=== PATIENT | female | born 1950 | race Caucasian/White ===

== ENCOUNTER → 2019-08-05 10:34 | Outpatient (BNVA) | payer MEDICARE, MEDICAID, SELFPAY | PROVIDERS: Family Provider Family Medicine; PCP Family Medicine; Visit Provider Emergency Medicine | DX: N39.0 Urinary tract infection, site not specified (principal); N81.4 Uterovaginal prolapse, unspecified | CPT/HCPCS: 81000 ==

== ENCOUNTER → 2019-08-16 15:13 | Outpatient (BNVA) | payer MEDICARE, MEDICAID, SELFPAY | PROVIDERS: Family Provider Family Medicine; PCP Family Medicine; Visit Provider Obstetrics & Gynecology | DX: N81.4 Uterovaginal prolapse, unspecified (principal) | CPT/HCPCS: 81000 ==

== ENCOUNTER 2019-08-25 11:13 | Observation (INO) | payer MEDICARE, MEDICAID, SELFPAY ==
[2019-08-24 08:40] VITALS: BMI 27.3
[2019-08-25] VITALS (18 sets, daily range): BP systolic 98–126; BP diastolic 53–74; PULSE 81–101; RESP 14–18; TEMP 36.4–36.7; O2SAT 92–99
[2019-08-25 06:18] LABS: Add Urine Microscopic? NO
--- NOTE | 2019-08-25 06:24 | ANES.PREANE2 ---
Pre-Anesthetic Assessment Pre-Anesthetic Assessment: Height/Weight: Height 1.7 m Weight 79.379 kg Temp Pulse Resp BP Pulse Ox 98.0 F 82 18 126/64 99 08/25/19 06:07 08/25/19 06:07 08/25/19 06:07 08/25/19 06:07 08/25/19 06:07 Preop Diagnosis: Uterine prolapse stage III Proposed Procedure: Operation Date: 08/25/19 07:00 Proposed Procedures p Total Vaginal Hysterectomy 5826 85281 [id number] N81.4 N39.3 A63.0(Not Applicable) - Reed Dyson MD s Salpingo-Oophorectomy (Vaginal)(Bilateral) - Reed Dyson MD s Anterior Repair(Not Applicable) - Reed Dyson MD s Sling SIS with sacrospinous ligament(Not Applicable) - Reed Dyson MD s Laser Ablation Gential Warts(Not Applicable) - Reed Dyson MD Familial anesthetic complications: PONV 1X Was Beta Cricket taken within 24 hours: N/A Last intake: Intake Last Liquid Date 08/24/19 Last Liquid Time 22:30 Last Solid Date 08/24/19 Last Solid Time 17:30 Social: Social History: Tobacco and No alcohol Exam: Pre-Anes Outpt Exam: alert, oriented x 3, clear to auscultation bilaterally and regular rate & rhythm Airway: Cervical ROM: WNL MP: 3 Dentition: False Pulmonary: Pulmonary: None reported CV/HEM: CV/HEM: HTN : : None reported Hepatic: Hepatic: None reported GI: GI: None reported Metabolic: Metabolic: None reported Musc/skel: Musc/skel: None reported Neuropsych: Neuropsych: TIA (2009) Anesthetic Plan: ASA status: 2 Anesthesia: General Risk of > 500 ml blood loss (7ml/kg in children): No PFSH Anesthesia PFSH: Medical History Uterine prolapse Family History Grandmother Diabetes maternal and paternal Brother Stroke Denies family history of Hyperlipidemia Hypertension Social History (Updated 08/16/19 @ 15:05 by Brittney Rdz RN) Smoking and tobacco status: current every day smoker cigarettes Packs smoked per day: 0.5 Years cigarettes smoked: 20 Alcohol intake: never Data Anesthesia Cardiac Studies: No Data to Display
[2019-08-25 06:35] LABS: Bilirubin Urine Neg (NEGATIVE); Blood Urine Neg (Negative); Glucose Urine UA Norm (Normal); Ketones Urine Negative (Negative); Leukocyte Esterase Urine Negative (Negative); Nitrate Urine Negative (Negative); Protein Urine Neg (Negative); Specific Gravity, Urine 1.015 (1.005-1.030); Urine Appearance Clear (CLEAR); Urine Color Yellow (Yellow); Urobilinogen Urine Norm (Negative); pH Urine 6 (5-7)
[2019-08-25 06:44] LABS: Basophils # 0.1 10^3/uL (0.0-0.1); Basophils % 1.1 %; Eosinophils # 0.4 10^3/uL (0.0-0.8); Eosinophils % 3.6 %; Hematocrit 45.9 % (37.0-47.0); Hemoglobin 14.7 g/dL (11.5-15.3); Lymphocytes # 2.9 10^3/uL (0.8-4.8); Mean Corpuscular Hemoglobin 29.4 pg (28.0-34.0); Mean Corpuscular Volume 91.8 fL (81-99); Mean Platelet Volume 9.6 fL (7.4-10.4); Monocytes # 0.8 10^3/uL (0.2-0.9); Monocytes % 8.4 %; Neutrophils # 5.4 10^3/uL (1.8-7.7); Neutrophils % 56.5 %; Nucleated Red Blood Cells % 0 %; Platelet Count 229 10^3/cmm (130-400); Red Cell Distribution Width 13.7 % (12.1-15.1); White Blood Count 9.6 10^3/uL (4.0-10.0)
[2019-08-25] MEDS: sodium chloride 0.9% 1,000 ML 30 ML IV (06:59)
--- NOTE | 2019-08-25 07:01 | W.PM.OPSUD ---
Surgery/Procedure H&P Update DATE OF PROCEDURE: August 25, 2019 DATE H&P PERFORMED: 08/16/19 H&P UPDATE INFORMATION: I have reviewed H&P completed within last 30 days, I have examined patient prior to procedure and No changes to prior documentation PREOP DIAGNOSIS: Uterine prolapse stage III PLANNED PROCEDURE: Operation Date: 08/25/19 07:00 Proposed Procedures p Total Vaginal Hysterectomy 5826 24416 08326 [id number] 30559 N81.4 N39.3 A63.0(Not Applicable) - Reed Dyson MD s Salpingo-Oophorectomy (Vaginal)(Bilateral) - Reed Dyson MD s Anterior Repair(Not Applicable) - Reed Dyson MD s Sling SIS with sacrospinous ligament(Not Applicable) - Reed Dyson MD s Laser Ablation Gential Warts(Not Applicable) - Reed Dyson MD
[2019-08-25 07:09] LABS: INR 0.94 (0.8-1.2)
[2019-08-25 07:19] LABS: Alanine Aminotransferase 20 U/L (0-33); Albumin Level 4.4 g/dL (3.5-5.2); Alkaline Phosphatase 67 IU/L (35-105); Anion Gap 13.4 (5-19); Aspartate Amino Transferase 19 U/L (0-32); Blood Urea Nitrogen 16 mg/dL (8-23); Calcium 9.9 mg/dL (8.5-10.5); Carbon Dioxide 26 mmol/L (22-29); Chloride 103 mmol/L (98-107); Globulin 2.4 g/dL (1.3-4.6); Glomerular Filtration Rate 71.5 mL/min (90-130); Glucose 109 mg/dL (65-115); Osmolality Calculated 283 mOsm/kg (285-295); Potassium 4.4 mmol/L (3.5-5.1); Sodium 138 mmol/L (136-145); Total Bilirubin 0.4 mg/dL (0.15-1.2); Total Protein 6.8 g/dL (6.6-8.7)
[2019-08-25] MEDS: estrogens Conjugated Cream 30 gm 1 APPLIC VAGINAL (10:40)
[2019-08-25] MEDS: silver sulfadiazine cream 1% 50 gm 1 APPLIC TOPICAL (10:41)
--- NOTE | 2019-08-25 10:54 | P.OP_ITS ---
Operative Report Date of procedure: August 25, 2019 Pre-op Diagnosis: Uterine prolapse stage III, Genital Warts Post-op diagnosis: same Procedure Done: Total vaginal hysterectomy with right salpingo-oophorectomy, Anterior colporrhaphy augmented with allograft, posterior colporrhaphy, mid urethral sling, and bilateral sacrospinous ligament suspension Specimens removed/disposition: Uterus and right ovary Genital warts Surgeon: Reed Dyson Anesthesia: General Estimated blood loss (mL): 150 IV fluids (mL): 1,900 Urine output (mL): 200 Complications: None Condition: stable Disposition: PACU Brief History: 69-year-old female with uterine prolapse stage 3-4, and multiple vulvar perineal genital warts Procedure: After informed consent and risks, benefits, indications and alternatives reviewed with the patient was taken to the operating room. The patient was placed in dorsal lithotomy position prepped, and draped in the usual sterile fashion. The pre-procedure timeout verifying the correct patient, procedure, site and side, could not requirements was performed and acknowledge by the OR team. A Smiley catheter was placed. A Bookwalter vaginal retractor was placed into the vagina in usual manner visualize the cervix. Cervix was grasped with a single tooth tenaculum and circumferentially infiltrated with 1% Xylocaine with epinephrine. Then cervix was circumferentially incised with bovie and the bladder was dissected off the pubovesical cervical fascia anteriorly with a sponge stick and Metzenbaum scissors. The anterior peritoneal reflection was identified and the anterior cul-de-sac was entered sharply with Metzenbaum scissors. The same procedure was performed posteriorly and a posterior colpotomy was made through the posterior cul-de-sac space without difficulty and the posterior blade of the Bookwalter vaginal retractor was advanced posteriorly into the cul-de-sac. At this time, the left and right uterosacral ligaments were isolated and ligated with 0 Vicryl. The Enseal device was placed over the uterosacral ligaments on either side and was then used in a serial fashion up through the cardinal ligaments bilaterally cross-clamped, cut, and sealed with the Enseal device. Finally, the uterine arteries were cross-clamped, cut, sealed and ligated with the Enseal device. Hemostasis was assured. The broad ligaments were then serially clamped, sealed and cut with the Enseal device on both sides. Excellent hemostasis was visualized. Both cornua were clamped, sealed and cut with the Enseal device. Then the pedicles were then suture ligated with excellent hemostasis. The uterus was excised and submitted for pathologic evaluation. No other ab normalities were noted in the pelvic cavity. The peritoneum was then closed in a pursestring fashion with 0 Vicryl suture. The vaginal cuff angles were closed with [id number] #0 Vicryl suture on both sides and transfixed with the ipsilateral cardinal and uterosacral ligaments. The remainder of the vaginal cuff was closed with #0 Vicryl in a running locked fashion. A vertical midline incision was made beneath the midurethra, nearly 1.5 cm length. Careful submucosal dissection was performed bilaterally up to the interior portion of the inferior pubic ramus. The insertion of adductor longus tendon on the patient?s pubic ramus was identified as reference land brittaney. Palpated the notch along the internal edge of ischiopubic ramus where the adductor longus tendon and the inferior pubic ramus meet. The needle of the SIS inserted aiming at the location of this notch. One of the integrated self- fixating tips place onto the needle by sliding it over the end of the needle. The needle/sling assembly was inserted toward the location of identified reference notch making sure that the flat of the handle is perpendicular to the desired path. The needle was tracked along the posterior surface of the ischiopubic ramus until the midline brittaney on the mesh is approximately at the midline position under the urethra. The needle was removed and the same was repeated on the contralateral side until the appropriate sling tension under the urethra was achieved ensuring that the mesh lays flat. The needle was removed and vaginal incision was closed in a running interlocking fashion with 2-0 V icryl. The vaginal mucosa was then injected in the midline with normal saline. The vaginal mucosa was scored in the midline with the scalpel approximately 1 cm medial to the urethral meatus to 1 cm distal to the vaginal cuff. This vaginal mucosa was then undermined and then incised in the midline with the Metzenbaum scissors. The lateral aspects of the vaginal mucosa were then grasped with the A llis clamps and the vaginal mucosa was then dissected off the underlying fascia with the Metzenbaum scissors. Again, there was noted to be quite a bit of oozing at the incision, which was controlled with cautery. After adequate dissection was performed, bilaterally. An ACell MatriStem Pelvic Floor Matrix is modified at time of application to fit spacea,3 x 3 cm piece . MatriStem PFM placed in front of cystocele ready to be implanted with the Basement Membrane facing the vagina mucosa. Suture is placed at distal end of graft and placed towards vaginal cuff. Final suture is placed on proximal portion of the graft to complete the placement overlying the bladder. Then Interrupted vertical mattress sutures of 0 Vicryl were used to elevate the cystocele superiorly. The excessive vaginal mucosa was then trimmed with the Metzenbaum scissors and the vaginal mucosa was then reapproximated in the running interlocking fashion with 2-0 Vicryl. The posterior vaginal mucosa is opened in the routine fashion as described previously in Posterior Repair. A finger is inserted through the incision in the posterior vaginal mucosa, dissecting out the rectovaginal space (RVS). The right rectal pillar (RRP) is identified. The rectal pillar can be bluntly perforated either with the finger and with the tip of a long Adeola clamp. A Gladys- Aj retractor is used for exposing the rectovaginal space in order to enter the pararectal space with retraction of the cardinal ligament, vagina, and rectum. Displacing the rectum to the left and the cardinal ligament and ureter anteriorly. A sponge dissector is used to bluntly dissect the sacrospinous ligament removing areolar tissue. The ischial spine was palpated directly, and a area approximately 2 cm medial to the spine was selected for insertion of the Anchorsure transvaginal sacrospinous fixation system. One end of the suture of Anchoresure system inserted through the sacrospinous ligament is placed through the muscular layer of the vagina. In a similar manner, the second suture is placed. The opposite end of the suture in the sacrospinous ligament is left free and held on a small hemostat. Then traction on this suture will draw the vaginal vault directly to the ligament, where a square knot affixes it to the sacrospinous ligament. After the stefano stich is tied the second safety stich is tied. Then the colporrhaphy/vaginal repair is carried out in routine fashion. At this time, instruments were removed from the vagina at hemostasis assured. Then the Smiley catheter was removed and cystoscope was inserted. The bladder was filled with sterile water. Complete evaluation of the bladder mucosa was performed noting no lacerations, dimpling, tears, bleeding of the mucosa or muscular layers. Both ureteral orifices were identified. Prompt excretion of urine from both ureteral orifices was noted. Cystoscope was withdrawn. Smiley catheter was then placed yielding clear blue/paty urine. Then we proceeded to fulgurate vulvar and perianel genital warts in usual fashion 27 lesions were excised and send to pathology. A vaginal packing with Premarin cream was placed and the patient was taken out of dorsal lithotomy position and awakened from the general anesthesia. The patient tolerated the procedure well and was taken to the PACU recovery room in a stable condition. Sponge, lap, needle and instruments counts were correct x3.
[2019-08-25] MEDS: HYDROcodone-acetaminophen 5-325 mg Tablet PO (12:09)
[2019-08-25] MEDS: ketorolac 30 mg/mL INJ IVP ×2 (12:10→18:05)
[2019-08-25] MEDS: dextrose 5%-lactated ringers 1,000 ML 125 ML IV ×2 (12:14→20:29)
[2019-08-25] MEDS: ceFAZolin 1,000 MG in sodium chloride 0.9% (plus) 50 ML 100 MG IV (15:07)
[2019-08-25] MEDS: docusate sodium 100 mg Capsule PO (18:05)
--- NOTE | 2019-08-25 19:46 | PC.NURSE ---
Patient has bowel sounds in all four quadants without any flatus. Patient was informed that her diet can be advanced as soon as she is able to pass flatus.
[2019-08-26] MEDS: ceFAZolin 1,000 MG in sodium chloride 0.9% (plus) 50 ML 100 MG IV (00:46)
[2019-08-26 01:59] VITALS: BP 106/68; PULSE 89; RESP 16; TEMP 36.7; O2SAT 93
[2019-08-26] MEDS: ketorolac 30 mg/mL INJ IVP ×2 (02:02→08:25)
[2019-08-26 04:00] VITALS: BP 104/64; PULSE 85; RESP 20; TEMP 36.8; O2SAT 92
[2019-08-26] MEDS: dextrose 5%-lactated ringers 1,000 ML 125 ML IV ×2 (04:52→12:04)
[2019-08-26 05:13] LABS: Hematocrit 36.6 % (37.0-47.0); Hemoglobin 11.7 g/dL (11.5-15.3); Mean Corpuscular Hemoglobin 29.5 pg (28.0-34.0); Mean Corpuscular Volume 92.4 fL (81-99); Mean Platelet Volume 9.7 fL (7.4-10.4); Platelet Count 195 10^3/cmm (130-400); Red Blood Count 3.96 10^6/uL (4.1-5.3); Red Cell Distribution Width 13.8 % (12.1-15.1); White Blood Count 13.6 10^3/uL (4.0-10.0)
[2019-08-26 07:47] VITALS: BP 115/62; PULSE 78; RESP 15; TEMP 36.9; O2SAT 94
[2019-08-26] MEDS: omega-3 fatty acids 1,000 mg Capsule 1000 MG PO (08:25)
[2019-08-26] MEDS: lisinopril 10 mg Tablet PO (08:25)
[2019-08-26] MEDS: docusate sodium 100 mg Capsule PO (08:25)
[2019-08-26] MEDS: aspirin 325 mg Tablet PO (08:25)
[2019-08-26 11:36] VITALS: BP 122/67; PULSE 81; RESP 15; TEMP 36.9; O2SAT 92
--- NOTE | 2019-08-26 11:42 | PC.CHAP ---
Pastoral Care Encounter/Spiritual Assessment Type of Contact [] Declined nursing unit coordinator visit [] Patient/Family/Request visit [] Outpatient visit [] Follow-up visit [] Physician referral [] Code/Alert [x] Routine visit [] Staff referral [] Actively dying [] Patient sleeping [] Family support [] [] Out of room [] Palliative care [] [] Receiving care in room [] Pre-surgical visit [] Trauma [] Long length of stay [] ICU visit [] Other: Relational/Emotional Strength [x] Patient feels connected with others/family/visitors/staff [] Distress [] Loneliness/isolation [] Abandonment Spirituality of Patient [x] Person of Ju [x] Attends Judaism of their Ju [xx] Believes in Prayer [x] Reads Bible or Worship materials [] There are Spiritual issues to be addressed Film Process Operator Interventions [x] Prayer [x] Active listening [x] Non-anxious presence [x] Spiritual/emotional support [] Crisis/trauma care [x] Spiritual counseling [] Bereavement support [] Provided bereavement packet [] Provided Bible/devotional materials [] Provided toy/stuffed animal, coloring book to patient or family member [] Provided Communion [] Anointing/[place] [] Salvation [x] Completed spiritual assessment [] Other: Impact on Illness or Injury [] Angry [] Fearful [] Anxious [] Often cries [] Exhaustion [] Unable to work [] Unable to attend amish [] Unable to walk/stand [] Unable to read [] Unable to drive [] Unable to eat/drink [] Unable to sleep [] Unable to be with family [] Patient intubated [x] Other: Summary 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 Time spent with patient 10 minutes
--- NOTE | 2019-08-26 14:06 | PC.NURSE ---
Catheter was removed. 10cc of fluid in balloon. Patient tolerated well. Vaginal packing was removed as well. Post residual volume after catheter was removed and was found to be 174mL. Patient stated she can usually has to go to urinate after having a bowel movement, so patient attempted to void once more and residual was checked once more and found 154mL. Dr. Dyson called and patient to be sent home with a leg bag and an appointment to return to clinic on Friday to remove berry.
--- NOTE | 2019-08-26 14:07 | P.DS_ITS ---
Discharge Providers NANOTECHNOLOGY TECHNICIAN Date of Admission: 08/25/19 11:13 Date of Discharge: 08/26/19 Attending Provider at Admission: Reed Dyson MD Attending Provider at Discharge: Reed Dyson MD Primary Care Provider: Ericka Robertson MD Diagnoses at Discharge Discharge Diagnosis (1) Genital warts: Status: Acute (2) ANALILIA (stress urinary incontinence, female): Status: Acute (3) Uterine prolapse: Status: Acute Reason for Visit Reason for Visit: Reason For Visit: Uterine prolapse stage 4 Hospital Course Hospital Course: 69-year-old female admitted for planned total vaginal hysterectomy with bilateral salpingo-oophorectomy, anterior and posterior colporrhaphy mid urethral sling, bilateral sacrospinous ligament suspension and fulguration/excision of genital warts. The procedures were performed without complication. Overnight observation was uneventful. She is afebrile hemodynamically stable, pain well under control. Tolerating diet well. Ambulating without difficulty. Initial PVR 170 mL, second PVR 154 mL. The patient was counseled that she would have to go home with Smiley bag and return to the clinic on Friday rest the bladder longer. Physical Exam Narrative: EXAM NARRATIVE: GA: Alert and oriented ?3. HEENT: WNL. Heart: Regular rate and rhythm. Lungs: Clear to auscultation bilaterally. Abdomen: Bowel sounds present, nontender. AUTOMATIC FABRIC CUTTER: No bleeding. Extremities: No edema, no cyanosis, no calves pain. Urinary Catheter Management^: Smiley: Cath Placed During This Visit: yes Urinary Catheter Date of Insertion: 08/25/19 Urinary Catheter Time of Insertion: 08:00 Discharge Data Data Completed and Pending: Pending at discharge Category Date Time Status Urine Culture Rou samira Lab 08/25/19 06:12 Results Pathology: Surgic al [PTH] Routine Pth 08/26/19 09:55 Received Labs from last 24 hours 08/26/19 04:42 WBC 13.6 H RBC 3.96 L Hgb 11.7 Hct 36.6 L MCV 92.4 MCH 29.5 MCHC 32.0 RDW 13.8 Plt Count 195 MPV 9.7 Laboratory Tests 08/25/19 06:37 WBC 9.6 Hgb 14.7 Hct 45.9 Plt Count 229 Vitals: Last Vital Signs Temp 98.5 F 08/26/19 11:36 Pulse 81 08/26/19 11:36 Resp 15 08/26/19 11:36 BP 122/67 08/26/19 11:36 Pulse Ox 92 08/26/19 11:36 Discharge Plan Discharge Patient Disposition: Home, Self-Care Condition: Stable Prescriptions: New Triple Antibiotic Plus 3.5-500-10,000 [id number] ointment 1 applic TOPICAL BID Qty: 15 RF: 0 acetaminophen [Mapap Extra Strength] 500 mg tablet 500 mg PO Q4H PRN (Reason: fever or pain) Qty: 60 RF: 0 Continued lisinopril 10 mg tablet 10 mg PO DAILY Qty: 30 RF: 0 aspirin 325 mg Tablet 325 mg PO DAILY RF: 0 PreserVision AREDS 14,320-226-200 [id number] Capsule 1 cap PO BID RF: 0 Fish Oil 1,000 mg (120 mg-180 mg) Capsule 1 cap PO DAILY RF: 0 Discharge Orders: Discharge Order (Routine); Ordered 08/26/19 Ordered By: Reed Dyson Referrals: Reed Dyson MD [Physician] - Discharge Diet: Regular Discharge Activity: Increase activity as tolerated and Limit activity as instructed Activity Restrictions/Additional Instructions: Pelvic rest for 6 weeks (no sex, no tampons, no vaginal douches). Return to the emergency room if any fever, increased bleeding or pain. Discharge Attestations NANOTECHNOLOGY TECHNICIAN Time Spent in Discharge Care*: greater than 30 min Specific Discharge Activities: Specific discharge activities: educating patient Time Spent in Smoking Cessation: Time spent discussing smoking cessation with patient: 3 to 10 minutes Coding Level of Care Code Acute Dietitian Consultant for [facility] Fwd Diagnoses Genital warts A63.0 ANALILIA (stress urinary incontinence, female) N39.3 Uterine prolapse N81.4
[2019-08-26 14:38] VITALS: BP 122/67; PULSE 81; RESP 15; TEMP 36.9; O2SAT 92
[2019-08-26 15:52] VITALS: BP 142/72; PULSE 89; RESP 17; TEMP 36.9; O2SAT 94
== END 2019-08-26 16:00 | disposition home or self-care (01) ==
LOC: MEDSURG 11:13
PROVIDERS: Admitting Provider Obstetrics & Gynecology; PCP Family Medicine; Visit Provider Obstetrics & Gynecology
PROC: (CPT 57240; principal; 2019-08-25 07:00)
PROC: (CPT 58720; 2019-08-25 07:00)
PROC: 0JQC0ZZ Repair Pelvic Region Subcutaneous Tissue and Fascia, Open Approach (ICD-10-PCS; CPT 57240; 2019-08-25 07:00)
PROC: (CPT 57288; 2019-08-25 07:00)
PROC: (CPT 57240; 2019-08-25 07:00)
PROC: (CPT 57250; 2019-08-25 07:00)
PROC: 0TJB8ZZ Inspection of Bladder, Via Natural or Artificial Opening Endoscopic (ICD-10-PCS; CPT 52000; 2019-08-25 07:00)
DX: N81.3 Complete uterovaginal prolapse (principal); A63.0 Anogenital (venereal) warts; N39.3 Stress incontinence (female) (male); I10 Essential (primary) hypertension; Z86.73 Personal history of transient ischemic attack (TIA), and cerebral infarction without residual deficits; F17.210 Nicotine dependence, cigarettes, uncomplicated
CPT/HCPCS: 57240; 57288; 58262; 12345; 36415; 51702; 80053; 81003; 85025; 85027; 85610; 86850; 86900; 87086; 88304; 88307; 96361; 96365; 96366; 96375; C1713; C1762; G0378; J0690; J0694; J1885; J2001; J2704; J3010; J3490; J7030

== ENCOUNTER → 2019-10-06 13:02 | Outpatient (BNVA) | payer MEDICARE, MEDICAID, SELFPAY | PROVIDERS: PCP Family Medicine; Visit Provider Family Medicine | DX: N30.00 Acute cystitis without hematuria (principal); B37.3 Candidiasis of vulva and vagina | CPT/HCPCS: 80053; 81000 ==

== ENCOUNTER → 2019-10-18 16:48 | Outpatient (BNVA) | payer MEDICARE, MEDICAID, SELFPAY | PROVIDERS: PCP Family Medicine; Visit Provider Obstetrics & Gynecology | DX: N39.0 Urinary tract infection, site not specified (principal) | CPT/HCPCS: 80053; 87077; 87086; 87186 ==

== ENCOUNTER → 2019-11-06 09:38 | Outpatient (BNVA) | payer MEDICARE, MEDICAID, SELFPAY | PROVIDERS: PCP Family Medicine; Visit Provider Emergency Medicine | DX: N30.01 Acute cystitis with hematuria (principal); R39.9 Unspecified symptoms and signs involving the genitourinary system | CPT/HCPCS: 81000 ==

== ENCOUNTER → 2019-11-16 14:11 | Outpatient (BNVA) | payer MEDICARE, MEDICAID, SELFPAY | PROVIDERS: PCP Family Medicine; Visit Provider Obstetrics & Gynecology | DX: Z48.816 Encounter for surgical aftercare following surgery on the genitourinary system (principal); A63.0 Anogenital (venereal) warts; R35.0 Frequency of micturition | CPT/HCPCS: 81000 ==

== ENCOUNTER → 2019-11-22 12:24 | Outpatient (BNVA) | payer MEDICARE, MEDICAID, SELFPAY | PROVIDERS: PCP Family Medicine; Visit Provider Obstetrics & Gynecology | DX: R30.0 Dysuria (principal) | CPT/HCPCS: 80053; 81000 ==

== ENCOUNTER → 2019-12-17 14:53 | Outpatient (BNVA) | payer MEDICARE, MEDICAID, SELFPAY | PROVIDERS: PCP Family Medicine; Visit Provider Obstetrics & Gynecology | DX: R35.0 Frequency of micturition (principal) | CPT/HCPCS: 81000 ==

== ENCOUNTER → 2020-01-25 10:20 | Outpatient (BNVA) | payer MEDICARE, MEDICAID, SELFPAY | PROVIDERS: PCP Family Medicine; Visit Provider Nurse Practitioner Family | DX: J98.11 Atelectasis (principal); R05 Cough | CPT/HCPCS: 71046 ==

== ENCOUNTER → 2020-06-15 09:24 | Outpatient (BNVA) | payer MEDICARE, MEDICAID, SELFPAY | PROVIDERS: PCP Family Medicine; Visit Provider Obstetrics & Gynecology | DX: Z01.812 Encounter for preprocedural laboratory examination (principal); N99.3 Prolapse of vaginal vault after hysterectomy | CPT/HCPCS: 87635 ==

== ENCOUNTER 2020-06-21 09:10 | Day surgery (SDC) | payer MEDICARE, SELFPAY ==
[2020-06-19 11:52] LABS: Add Urine Microscopic? NO
[2020-06-19 12:02] LABS: Bilirubin Urine Neg (Negative); Blood Urine Neg (Negative); Glucose Urine UA Norm (Normal); Ketones Urine Negative (Negative); Leukocyte Esterase Urine Negative (Negative); Nitrate Urine Negative (Negative); Protein Urine Neg (Negative); Specific Gravity, Urine 1.015 (1.005-1.030); Urine Appearance Clear (CLEAR); Urine Color Yellow (Yellow); Urobilinogen Urine Norm (Negative); pH Urine 5 (5-7)
[2020-06-19 12:03] LABS: Basophils # 0.1 10^3/uL (0.0-0.1); Basophils % 0.7 %; Eosinophils # 0.1 10^3/uL (0.0-0.8); Eosinophils % 1.8 %; Hematocrit 40.9 % (37.0-47.0); Hemoglobin 13.5 g/dL (11.5-15.3); Lymphocytes # 1.9 10^3/uL (0.8-4.8); Lymphocytes % 25.9 %; Mean Corpuscular Hemoglobin 30.5 pg (28.0-34.0); Mean Corpuscular Volume 92.3 fL (81-99); Mean Platelet Volume 9.1 fL (7.4-10.4); Monocytes # 0.4 10^3/uL (0.2-0.9); Monocytes % 5.4 %; Neutrophils # 4.77 10^3/uL (1.8-7.7); Neutrophils % 65.9 %; Nucleated Red Blood Cells % 0 %; Platelet Count 228 10^3/cmm (130-400); Red Blood Count 4.43 10^6/uL (4.1-5.3); White Blood Count 7.2 10^3/uL (4.0-10.0)
--- NOTE | 2020-06-19 12:13 | ECG_ITS ---
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 Measurements Intervals [place] Rate: 77 P: 59 VT: 146 QRS: 51 QRSD: 89 T: 53 QT: 372 QTc: 423 Interpretive Statements SINUS RHYTHM No previous ECG available for comparison Electronically Signed On 06-20-2020 0:08:01 CDT by Lucien Booker M.D. [email or web address]
--- NOTE | 2020-06-19 12:22 | P.ANESASSM_ITS ---
Pre-Anesthetic Assessment Pre-Anesthetic Assessment: Height/Weight: Height 1.7 m Weight 71.668 kg Preop Diagnosis: Vaginal apex prolapse Proposed Procedure: Operation Date: 06/21/20 12:50 Proposed Procedures p Sacrospinous Ligament Suspension 88398 N99.3(Not Applicable) - Reed Dyson MD Was Beta Cricket taken within 24 hours: N/A Was Clonidine taken within 24 hours: N/A Social: Social History: Tobacco and No alcohol Exam: Pre-Anes Outpt Exam: alert, oriented x 3, clear to auscultation bilaterally and regular rate & rhythm Airway: Submandibular: WNL Cervical ROM: WNL MP: 2 Dentition: False Pulmonary: Pulmonary: COPD CV/HEM: CV/HEM: HTN Anesthetic Plan: ASA status: 3 Anesthesia: General Risk of > 500 ml blood loss (7ml/kg in children): No PFSH Anesthesia PFSH: Medical History Aftercare following surgery of the genitourinary system Hyperlipemia Hypertension Uterine prolapse Surgical History No pertinent past surgical history S/P bladder repair 80's S/P carpal tunnel release bilateral S/P hysterectomy 08/25/2019- [facility] with right salpingo-oophorectomy, anterior colporrhaphy augmented with allograft, posterior colporrhaphy, mid urethral sling and bilateral sacrospinous ligament suspension performed by Dr. Dyson at [facility] [place] S/P rotator cuff repair right Family History (Updated 06/19/20 @ 08:53 by Brittney Rdz, RN) Grandmother Diabetes maternal and paternal Brother Stroke Denies family history of Colon cancer Ovarian cancer Clotting disorder Heart disease Hyperlipidemia Breast cancer Anesthesia complication Bleeding disorder Hypertension Uterine cancer Thyroid condition Social History (Updated 06/19/20 @ 08:54 by Brittney Rdz, RN) Smoking and tobacco status: current every day smoker cigarettes Packs smoked per day: 0.5 Years cigarettes smoked: 20 Alcohol intake: never Substance/Drug Use: never Data Anesthesia CBC & Chem 7: 06/19/20 11:55 06/19/20 11:55 Other Labs: Laboratory Results - last 48 hr 06/19/20 06/19/20 11:47 11:55 WBC 7.2 RBC 4.43 Hgb 13.5 Hct 40.9 MCV 92.3 MCH 30.5 MCHC 33.0 RDW 14.0 Plt Count 228 MPV 9.1 Neut % (Auto) 65.9 Lymph % (Auto) 25.9 [place] % (Auto) 5.4 Eos % (Auto) 1.8 Baso % (Auto) 0.7 Neut # (Auto) 4.77 Lymph # (Auto) 1.9 [place] # (Auto) 0.4 Eos # (Auto) 0.1 Baso # (Auto) 0.1 Nucleated RBC % (auto) 0 Nucleated RBCs # 0.0 Urine Color Yellow Urine Appearance Clear Urine pH 5 Ur Specific Hermin[place] 1.015 Urine Protein Neg Urine Glucose (UA) Norm Urine Ketones Negative Urine Blood Neg Urine Nitrate Negative Urine Bilirubin Neg Urine Urobilinogen Norm Ur Leukocyte Esterase Negative Cardiac Studies: No Data to Display
[2020-06-19 12:25] LABS: Alanine Aminotransferase 17 U/L (0-33); Albumin Level 4.1 g/dL (3.5-5.2); Alkaline Phosphatase 77 IU/L (35-105); Anion Gap 12.8 (5-19); Aspartate Amino Transferase 18 U/L (0-32); Blood Urea Nitrogen 11 mg/dL (8-23); Calcium 9.1 mg/dL (8.5-10.5); Carbon Dioxide 25 mmol/L (22-29); Chloride 97 mmol/L (98-107); Globulin 2.8 g/dL (1.3-4.6); Glomerular Filtration Rate 62.3 mL/min (90-130); Glucose 95 mg/dL (65-115); Osmolality Calculated 271 mOsm/kg (285-295); Potassium 3.8 mmol/L (3.5-5.1); Sodium 131 mmol/L (136-145); Total Bilirubin 0.2 mg/dL (0.15-1.2); Total Protein 6.9 g/dL (6.6-8.7)
--- NOTE | 2020-06-21 09:32 | W.PM.OPSUD ---
Surgery/Procedure H&P Update DATE OF PROCEDURE: June 21, 2020 DATE H&P PERFORMED: 08/16/19 H&P UPDATE INFORMATION: I have reviewed H&P completed within last 30 days, I have examined patient prior to procedure and No changes to prior documentation PREOP DIAGNOSIS: Uterine prolapse stage III, Genital Warts PLANNED PROCEDURE: Operation Date: 06/21/20 10:40 Proposed Procedures p sacrospinous ligament fixation(Not Applicable) - Reed Dyson MD
[2020-06-21] MEDS: sodium chloride 0.9% 1,000 ML 30 ML IV (10:10)
--- NOTE | 2020-06-21 10:23 | P.ANESUD_ITS ---
Pre-Anesthetic Update Pre-Anesthetic Assessment: Date of Surgery/Procedure: 06/21/20 Preop Nidhi gnosis: Uterine prolapse stage III, Genital Warts Proposed Procedure: Operation Date: 06/21/20 10:40 Proposed Procedures p sacrospinous ligament fixation(Not Applicable) - Reed Dyson MD Any changes to Pre-Anesthetic Assessment?: No Last Intake: Intake Last Liquid Date 06/20/20 Last Liquid Time 23:30 Last Solid Date 06/20/20 Last Solid Time 20:00 Labs Last 48hrs: Laboratory Results - last 48 hr 06/19/20 06/19/20 06/19/20 11:47 11:55 11:55 WBC 7.2 RBC 4.43 Hgb 13.5 Hct 40.9 MCV 92.3 MCH 30.5 MCHC 33.0 RDW 14.0 Plt Count 228 MPV 9.1 Neut % (Auto) 65.9 Lymph % (Auto) 25.9 [place] % (Auto) 5.4 Eos % (Auto) 1.8 Baso % (Auto) 0.7 Neut # (Auto) 4.77 Lymph # (Auto) 1.9 [place] # (Auto) 0.4 Eos # (Auto) 0.1 Baso # (Auto) 0.1 Nucleated RBC % (a uto) 0 Nucleated RBCs # 0.0 Sodium 131 L Potassium 3.8 Chloride 97 L Carbon Dioxide 25 Anion Gap 12.8 BUN 11 Creatinine 0.9 GFR Calculation 62.3 L Glucose 95 Calculated Osmolal ity 271 L Calcium 9.1 Total Bilirubin 0.2 AST 18 ALT 17 Alkaline Phosphata se 77 Total Protein 6.9 Albumin 4.1 Globulin 2.8 Urine Color Yellow Urine Appearance Clear Urine pH 5 Ur Specific Gravit y 1.015 Urine Protein Neg Urine Glucose (UA) Norm Urine Ketones Negative Urine Blood Neg Urine Nitrate Negative Urine Bilirubin Neg Urine Urobilinogen Norm Ur Leukocyte Mary ase Negative Blood Type Rho(D) Type Antibody Screen 06/19/20 11:59 WBC RBC Hgb Hct MCV MCH MCHC RDW Plt Count MPV Neut % (Auto) Lymph % (Auto) [place] % (Auto) Eos % (Auto) Baso % (Auto) Neut # (Auto) Lymph # (Auto) [place] # (Auto) Eos # (Auto) Baso # (Auto) Nucleated RBC % (a uto) Nucleated RBCs # Sodium Potassium Chloride Carbon Dioxide Anion Gap BUN Creatinine GFR Calculation Glucose Calculated Osmolal ity Calcium Total Bilirubin AST ALT Alkaline Phosphata se Total Protein Albumin Globulin Urine Color Urine Appearance Urine pH Ur Specific Gravit y Urine Protein Urine Glucose (UA) Urine Ketones Urine Blood Urine Nitrate Urine Bilirubin Urine Urobilinogen Ur Leukocyte Mary ase Blood Type O Negative Rho(D) Type Negative / 0 Antibody Screen Negative Vitals: Pulse Rhythm 06/21/20 09:55 Pulse Strength 3+ Normal 06/21/20 09:55 Oxygen Delivery Me thod 06/21/20 09:55 Exam: Pre-Anes Outpt Exam: alert, oriented x 3, clear to auscultation bilaterally and regular rate & rhythm Cardiac Studies: No Data to Display
[2020-06-21] MEDS: sodium chloride 0.9% 500 ML 999 ML IV (10:25)
[2020-06-21 13:46] VITALS: BP 131/65; PULSE 103; RESP 16; TEMP 36.2; O2SAT 97
[2020-06-21 13:50] VITALS: BP 116/59; PULSE 84; RESP 14; O2SAT 98
--- NOTE | 2020-06-21 13:50 | PM.OP ---
Operative Report Date of procedure: June 21, 2020 Pre-op Diagnosis: Vaginal Arnold prolapse stage 2 Post-op diagnosis: same Procedure Done: Sacrospinal ligament fixation Specimens removed/disposition: None Surgeon: Reed Dyson MD Anesthesia: General Estimated blood loss (mL): 25 Urine output (mL): 300 Findings: Vaginal apex prolapse stage II Condition: stable Disposition: PACU Brief History: 70-year-old female post hysterectomy anterior colporrhaphy and previous ligament fixation, developed apex prolapse stage II after being sick with coughing. Procedure: The patient is placed in the dorsal lithotomy position and is prepped and draped in the usual manner. If no hysterectomy: circumscribing the vaginal mucosa at the junction of the cervix and vagina in the routine manner for starting a vaginal hysterectomy. The vaginal hysterectomy is completed at this point according to the technique shown in the section Uterus. The posterior vaginal mucosa is opened in the routine fashion as described previously in Posterior Repair. A finger is inserted through the incision in the posterior vaginal mucosa, dissecting out the rectovaginal space (RVS). The right rectal pillar (RRP) is identified. The rectal pillar can be bluntly perforated either with the finger or with the tip of a long Adeola clamp. A right angle retractor was used for exposing the rectovaginal space in order to enter the pararectal space with retraction of the cardinal ligament, vagina, and rectum. Displacing the rectum to the left and the cardinal ligament and ureter anteriorly. A sponge dissector is used to bluntly dissect the sacrospinous ligament removing areolar tissue. The ischial spine was palpated directly, and a area approximately 2 cm medial to the spine was selected for insertion of the Anchorsure transvaginal sacrospinous fixation system. One end of the suture of Anchoresure system inserted through the sacrospinous ligament is placed through the muscular layer of the vagina. In a similar manner, the second suture is placed. The opposite end of the suture in the sacrospinous ligament is left free and held on a small hemostat. Then traction on this suture will draw the vaginal vault directly to the ligament, where a square knot affixes it to the sacrospinous ligament. After the stefano stich is tied the second safety stich is tied. The vaginal mucosa was closed in a running locked fashion with Vicryl 2-O. Patient tolerated procedure well. Excellent hemostasis was obtained. Sponge, lap, needle, and instrument counts were correct times three. The patient was taken to the recovery room, awake and in stable condition.
[2020-06-21 13:55] VITALS: BP 114/54; PULSE 88; RESP 16; TEMP 36.2; O2SAT 99
[2020-06-21 13:57] VITALS: BP 116/59; PULSE 90; RESP 16; TEMP 36.2; O2SAT 96
[2020-06-21 14:26] VITALS: BP 114/64; PULSE 78; RESP 16; O2SAT 96
--- NOTE | 2020-06-21 16:04 | ANE.PACU2 ---
Inpatient post-anesthesia follow up: Airway intact: Yes Vital signs: Temperature 97.2 F Pulse Rate 78 Respiratory Rate 16 Blood Pressure 114/64 Pulse Oximetry 96 Oxygen Delivery Me thod Room Air Oxygen Flow Rate 6 Fraction of Inspir ed Oxygen Hydration adequate: Yes Nausea and vomiting: No Pain level: 1 Mental status: Baseline
== END 2020-06-21 14:45 | disposition home or self-care (01) ==
PROVIDERS: PCP Family Medicine; Visit Provider Obstetrics & Gynecology
PROC: 0JQC0ZZ Repair Pelvic Region Subcutaneous Tissue and Fascia, Open Approach (ICD-10-PCS; CPT 57240; principal; 2020-06-21 10:40)
DX: N99.3 Prolapse of vaginal vault after hysterectomy (principal); J44.9 Chronic obstructive pulmonary disease, unspecified; I10 Essential (primary) hypertension; E78.5 Hyperlipidemia, unspecified; F17.210 Nicotine dependence, cigarettes, uncomplicated
CPT/HCPCS: 57282; 36415; 80053; 81003; 85025; 86850; 86900; 93005; 96365; J0690; J2250; J2370; J2405; J2704; J3010; J7030

== ENCOUNTER → 2020-08-04 13:48 | Outpatient (BNVA) | payer MEDICARE, SELFPAY | PROVIDERS: PCP Family Medicine; Visit Provider Obstetrics & Gynecology | DX: R35.0 Frequency of micturition (principal); N39.0 Urinary tract infection, site not specified; N39.46 Mixed incontinence; Z48.816 Encounter for surgical aftercare following surgery on the genitourinary system | CPT/HCPCS: 81000 ==

== ENCOUNTER → 2020-09-12 10:52 | Outpatient (BNVA) | payer MEDICARE, SELFPAY | PROVIDERS: PCP Family Medicine; Visit Provider Emergency Medicine | DX: J30.2 Other seasonal allergic rhinitis (principal); N39.0 Urinary tract infection, site not specified | CPT/HCPCS: 81000 ==

== ENCOUNTER → 2021-02-14 10:43 | Outpatient (BNVA) | payer MEDICARE, SELFPAY | PROVIDERS: PCP Family Medicine; Visit Provider Emergency Medicine | DX: R05.9 Cough, unspecified (principal); I70.90 Unspecified atherosclerosis | CPT/HCPCS: 71046 ==

== ENCOUNTER → 2021-08-22 09:27 | Outpatient (BNVA) | payer MEDICARE, MEDICAID, SELFPAY | PROVIDERS: PCP Family Medicine; Visit Provider Family Medicine | DX: I10 Essential (primary) hypertension (principal); G89.28 Other chronic postprocedural pain; N32.81 Overactive bladder; J44.1 Chronic obstructive pulmonary disease with (acute) exacerbation; E78.00 Pure hypercholesterolemia, unspecified; J30.2 Other seasonal allergic rhinitis | CPT/HCPCS: 80053; 80061; 85025 ==

== ENCOUNTER → 2021-09-07 10:19 | Outpatient (BNVA) | payer MEDICARE, MEDICAID, SELFPAY | PROVIDERS: PCP Family Medicine; Visit Provider Emergency Medicine | DX: R05.9 Cough, unspecified (principal); F17.200 Nicotine dependence, unspecified, uncomplicated | CPT/HCPCS: 71046 ==

== ENCOUNTER → 2022-06-24 10:18 | Outpatient (BNVA) | payer OTHER, SELFPAY | PROVIDERS: PCP Family Medicine; Visit Provider Family Medicine | DX: J44.9 Chronic obstructive pulmonary disease, unspecified (principal); I10 Essential (primary) hypertension; G89.28 Other chronic postprocedural pain; J44.1 Chronic obstructive pulmonary disease with (acute) exacerbation; E78.00 Pure hypercholesterolemia, unspecified; J41.0 Simple chronic bronchitis; Z72.0 Tobacco use; N32.81 Overactive bladder | CPT/HCPCS: 80053; 80061 ==

== ENCOUNTER → 2022-07-02 10:40 | Outpatient (BNVA) | payer MEDICARE, SELFPAY | PROVIDERS: PCP Family Medicine; Visit Provider Nurse Practitioner Family | DX: N30.00 Acute cystitis without hematuria (principal); J22 Unspecified acute lower respiratory infection; B96.89 Other specified bacterial agents as the cause of diseases classified elsewhere | CPT/HCPCS: 81000 ==

== ENCOUNTER → 2022-07-15 09:29 | Outpatient (BNVA) | payer MEDICARE, SELFPAY | PROVIDERS: PCP Family Medicine; Visit Provider Emergency Medicine | DX: R39.9 Unspecified symptoms and signs involving the genitourinary system (principal) | CPT/HCPCS: 81000; 87077; 87086; 87184 ==

== ENCOUNTER → 2022-08-27 09:39 | Outpatient (BNVA) | payer MEDICARE, SELFPAY | PROVIDERS: PCP Family Medicine; Visit Provider Family Medicine | DX: A09 Infectious gastroenteritis and colitis, unspecified (principal) | CPT/HCPCS: 87045; 87427; 87449; 87493; 87506 ==

== ENCOUNTER → 2022-10-07 09:55 | Outpatient (BNVA) | payer MEDICARE, SELFPAY | PROVIDERS: PCP Family Medicine; Visit Provider Family Medicine | DX: Z00.00 Encounter for general adult medical examination without abnormal findings (principal); Z71.89 Other specified counseling; F17.200 Nicotine dependence, unspecified, uncomplicated; Z53.20 Procedure and treatment not carried out because of patient's decision for unspecified reasons; I10 Essential (primary) hypertension; E87.1 Hypo-osmolality and hyponatremia; J41.0 Simple chronic bronchitis; K52.9 Noninfective gastroenteritis and colitis, unspecified | CPT/HCPCS: 80048 ==

== ENCOUNTER → 2022-10-22 10:06 | Outpatient (BNVA) | payer MEDICARE, SELFPAY | PROVIDERS: PCP Family Medicine; Visit Provider Family Medicine | DX: E87.1 Hypo-osmolality and hyponatremia (principal) | CPT/HCPCS: 80048 ==

== ENCOUNTER → 2022-12-25 10:13 | Outpatient (BNVA) | payer MEDICARE, SELFPAY | PROVIDERS: PCP Family Medicine; Visit Provider Nurse Practitioner Family | DX: N39.0 Urinary tract infection, site not specified (principal) | CPT/HCPCS: 81000; 87077; 87086; 87184 ==

== ENCOUNTER 2023-01-08 09:50 | Outpatient (CLI) | payer MEDICARE, OTHER, SELFPAY ==
--- NOTE | 2023-01-08 10:14 | MM_ITS ---
WS: [id number] BILATERAL SCREENING DIGITAL TOMOSYNTHESIS MAMMOGRAM WITH CAD HISTORY: Z00.00 - Encounter for general adult medical examination ... COMPARISON: None available. Bilateral CC and MLO views with tomosynthesis and synthetic mammography submitted. Computer aided det ection analyzed. Breast composition: There are scattered areas of fibroglandular density. No suspicious masses, microc alcifications or architectural distortion. Benign calcifications LEFT breast. IMPRESSION: MM/[place] [id number] BI-RADS: 2-Benign FOLLOW UP: 1 Year Follow-up
== END 2023-01-08 09:51 | disposition home or self-care (01) ==
PROVIDERS: PCP Family Medicine; Visit Provider Family Medicine
DX: Z12.31 Encounter for screening mammogram for malignant neoplasm of breast (principal)
CPT/HCPCS: 77063; 77067

== ENCOUNTER → 2023-01-13 13:54 | Outpatient (BNVA) | payer MEDICARE, SELFPAY | PROVIDERS: PCP Family Medicine; Visit Provider Nurse Practitioner Family | DX: N39.0 Urinary tract infection, site not specified (principal); R30.0 Dysuria | CPT/HCPCS: 81000; 87077; 87086; 87184 ==

== ENCOUNTER → 2023-07-23 09:52 | Outpatient (BNVA) | payer MEDICARE, SELFPAY | PROVIDERS: PCP Family Medicine; Visit Provider Nurse Practitioner Family | DX: N39.0 Urinary tract infection, site not specified | CPT/HCPCS: 81000; 87077; 87086; 87184 ==

== ENCOUNTER → 2023-07-30 09:32 | Outpatient (BNVA) | payer MEDICARE, SELFPAY | PROVIDERS: PCP Family Medicine; Visit Provider Nurse Practitioner Family | DX: N39.0 Urinary tract infection, site not specified (principal); N39.46 Mixed incontinence | CPT/HCPCS: 81000; 87086; 87184 ==

== ENCOUNTER → 2023-10-15 11:24 | Outpatient (BNVA) | payer MEDICARE, SELFPAY | PROVIDERS: PCP Family Medicine; Visit Provider Family Medicine | DX: Z13.1 Encounter for screening for diabetes mellitus (principal); E78.00 Pure hypercholesterolemia, unspecified | CPT/HCPCS: 80053; 80061 ==

== ENCOUNTER → 2024-01-05 09:19 | Outpatient (BNVA) | payer MEDICARE, SELFPAY | PROVIDERS: PCP Family Medicine; Visit Provider Nurse Practitioner Family | DX: R30.0 Dysuria (principal) | CPT/HCPCS: 81000 ==

== ENCOUNTER 2024-01-28 13:25 | Outpatient (CLI) | payer MEDICARE, SELFPAY ==
--- NOTE | 2024-01-28 14:00 | MM_ITS ---
WS: [id number] BILATERAL 3D TOMOSYNTHESIS DIGITAL SCREENING MAMMOGRAPHY WITH CAD CLINICAL INFORMATION: Z12.39 - Encounter for other screening for malignant neop... HISTORY: Screening mammogram. No current complaints. COMPARISON: 01/08/2023 TECHNIQUE: Bilateral CC and MLO views. FINDINGS: Scattered fibroglandular densities bilaterally. No suspicious focal mass, asymmetry, calcifications, or architectural distortion. No evidence of malignancy. A few incidental punctate calcifications LEFT breast MM/MM scr tomosynthesis [id number] IMPRESSION: DENSITY: There are scattered areas of fibroglandular density. BI-RADS: 2 - Benign. FOLLOW UP: 1 Year Follow-up Recommend return to annual screening mammography.
--- NOTE | 2024-01-28 14:30 | XR_ITS ---
WS: [id number] SCREENING DEXA SCAN [facility] CLINICAL INFORMATION: Z78.0 - Asymptomatic menopausal state COMPARISON: None. FINDINGS: The L1-L4 bone mineral density measures 1.453 g/cm2. This corresponds to a T score score of 2.3 and Z score of 3.9. Left femoral neck bone mineral density measures 0.918 g/cm2. This corresponds to a T score of -0.7 an d Z score of 0.8. Right femoral neck bone mineral density measures 0.872 g/cm2. This corresponds to a T score -1.1of an d Z score of 0.4. Mean femoral neck bone mineral density measures 0.895 g/cm2. This corresponds to a T score of -0.9 an d Z score of 0.6. XR/XR DEXA axial skeleton* [id number] IMPRESSION: Normal bone mineralization lumbar spine. Osteopenia RIGHT femoral neck. Normal bone mineralization LEFT femoral neck. Patient's FRAX calculated 10 year probability for major osteoporotic fracture i s 10.1% and osteoporotic hip fracture is 2.4%.
== END 2024-01-28 13:26 | disposition home or self-care (01) ==
LOC: RAD 13:26
PROVIDERS: PCP Family Medicine; Visit Provider Family Medicine
DX: Z12.31 Encounter for screening mammogram for malignant neoplasm of breast (principal); Z13.820 Encounter for screening for osteoporosis; R92.323 Mammographic fibroglandular density, bilateral breasts; R92.1 Mammographic calcification found on diagnostic imaging of breast; Z78.0 Asymptomatic menopausal state; M85.80 Other specified disorders of bone density and structure, unspecified site
CPT/HCPCS: 77063; 77067; 77080

== ENCOUNTER → 2024-01-29 09:51 | Outpatient (BNVA) | payer MEDICARE, SELFPAY | PROVIDERS: PCP Family Medicine; Visit Provider Emergency Medicine | DX: R35.0 Frequency of micturition (principal); N39.0 Urinary tract infection, site not specified | CPT/HCPCS: 81000; 87086 ==

== ENCOUNTER → 2024-06-29 09:50 | Outpatient (BNVA) | payer MEDICARE, SELFPAY | PROVIDERS: PCP Family Medicine; Referring Provider Obstetrics & Gynecology; Visit Provider Surgery | DX: Z12.11 Encounter for screening for malignant neoplasm of colon (principal) | CPT/HCPCS: 99024; 99204 ==

== ENCOUNTER → 2024-10-18 11:18 | Outpatient (BNVA) | payer MEDICARE, SELFPAY | PROVIDERS: PCP Family Medicine; Visit Provider Family Medicine | DX: I10 Essential (primary) hypertension (principal); E78.00 Pure hypercholesterolemia, unspecified | CPT/HCPCS: 80053; 80061 ==